=== PATIENT | female | born 1995 | race Caucasian/White ===

== ENCOUNTER 2024-03-17 17:59 | Emergency (ER) | payer OTHER ==
[~2024-03-17] VITALS: Ht 152.4 cm; Wt 79.4 kg
[2024-03-17 18:08] VITALS: BP 103/63; PULSE 100; RESP 16; TEMP 98.8; O2SAT 100
[2024-03-17] MEDS: ONDANSETRON 4 MG/2 ML VIAL IVP ONE (18:45)
[2024-03-17] MEDS: NACL 0.9% 1,000 ML IV ONE (18:46)
[2024-03-17 19:10] LABS: BASOPHILS % (AUTO) 0.2 % (0.0-2.0); EOSINOPHILS % (AUTO) 0.2 % (0.0-4.0); HEMATOCRIT 36.3 % (36-48); LYMPHOCYTES # (AUTO) 0.7 K/uL (2.5-16.5); LYMPHOCYTES % (AUTO) 11.3 % (20.5-51.1); MEAN CORPUSCULAR HEMOGLOBIN 28 pg (27-31); MEAN CORPUSCULAR HGB CONC 33 g/dL (33-37); MEAN CORPUSCULAR VOLUME 83.9 fL (80-94); MONOCYTES # (AUTO) 0.4 K/uL (0.8-1.0); MONOCYTES % (AUTO) 5.7 % (1.7-9.3); NEUTROPHILS # (AUTO) 5.2 K/uL (1.8-7.7); NEUTROPHILS % (AUTO) 82.6 % (42.2-75.2); PLATELET COUNT (AUTO) 173 K/uL (140-450); RED BLOOD CELL COUNT(AUTO) 4.32 MIL/uL (4.20-5.40); RED CELL DISTRIBUTION WIDTH 14.8 % (11.6-13.7); WHITE BLOOD COUNT (AUTO) 6.2 K/uL (4.8-10.8)
[2024-03-17 19:19] LABS: ANION GAP 11.9 (8-16); CALCIUM 7.3 mg/dL (8.5-10.1); CARBON DIOXIDE 23.9 mmol/L (21-32); CREATININE 0.7 mg/dL (0.6-1.3); POTASSIUM 3.8 mmol/L (3.5-5.1)
[2024-03-17] MEDS ORDERED: ONDA-188 PO (19:24)
[2024-03-17 19:26] LABS: ALBUMIN 3.1 g/dL (3.4-5.0); BILIRUBIN,DIRECT 0.1 mg/dL (0.0-0.3); TOTAL BILIRUBIN 0.3 mg/dL (0.0-1.0); TOTAL PROTEIN, SERUM 6.3 g/dL (6.4-8.2)
[2024-03-17 20:20] VITALS: BP 111/65; PULSE 98; RESP 16; TEMP 98.3; O2SAT 100
== END 2024-03-17 20:18 | disposition home or self-care (01) ==
LOC: MED 17:59
DX: A08.4 Viral intestinal infection, unspecified (principal); Z90.49 Acquired absence of other specified parts of digestive tract; Z98.890 Other specified postprocedural states
CPT/HCPCS: 80048; 80076; 81025; 83690; 85025; 96361; 96374; 99283; J2405; J7030

== ENCOUNTER 2024-07-07 14:03 | Emergency (ER) | payer OTHER ==
[~2024-07-07] VITALS: Ht 152.4 cm; Wt 81.2 kg
[~2024-07-07 14:03] MED LIST: ONDA-188 PO
[2024-07-07 14:20] VITALS: BP 117/74; PULSE 101; RESP 18; TEMP 99.1; O2SAT 99
[2024-07-07] MEDS ORDERED: BENZ-300 PO (14:39)
[2024-07-07 16:32] LABS: FLU A ANTIGEN negative (NEGATIVE); FLU B ANTIGEN NEGATIVE (NEGATIVE)
== END 2024-07-07 15:45 | disposition home or self-care (01) ==
LOC: MED 14:03
DX: J02.9 Acute pharyngitis, unspecified (principal); M79.18 Myalgia, other site; Z20.822 Contact with and (suspected) exposure to COVID-19; Z79.899 Other long term (current) drug therapy
CPT/HCPCS: 87081; 99283